=== PATIENT | female | born 1980 | race Caucasian/White ===

== ENCOUNTER 2023-08-01 09:31 | Emergency (ER) | payer OTHER, SELFPAY ==
[2023-08-01 09:32] VITALS: BP 150/81
[2023-08-01 10:10] LABS: COVID-19 Antigen Positive (Negative)
--- NOTE | 2023-08-01 10:24 | ED.GENMED ---
History of Present Illness
<Cheryl Clement PA-C - Last Filed: 08/01/23 13:48>
General
Chief Complaint: Cold/Flu/URI Symptoms
Source: patient
Exam Limitations: none
Time Seen by Provider: 08/01/23 10:22
Nursing documentation reviewed up to this point in time: agreed with
Travel History
Have you had any contact with someone who has COVID-19?: No
Do you have any symptoms of coronavirus? Fever > 100 degrees, chills, cough, shortness of breath, sore throat, loss of taste or smell, muscle aches, or headache?: No
History of Present Illness
History of Present Illness:
42-year-old female with a past medical history of coronary artery disease, hypertension, anemia, hyperlipidemia, type 1 diabetes status post pancreas and kidney transplant presenting to the emergency department today with cough, runny nose,
generalized weakness for the past 5 days. Patient denies any fevers or chills, abdominal pain, shortness of breath, chest pain. Patient does note that she had a few episodes of vomiting today. Patient denies any back pain. Patient also has
decreased appetite and feels that she is dehydrated and is not doing a good job of getting fluids in. Patient follows with [facility] where she had her transplant's done. Patient takes tacrolimus.
Past History
<Cheryl Clement PA-C - Last Filed: 08/01/23 13:48>
Past History
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 Renal and pancreatic
transplant November 2010.)
ED Past Surgical History: Other (renal and pancreatic transplant, right upper extremity fistula)
Social History
Tobacco: Former smoker
Alcohol: None
Drug: None
Personal: Single
Living: with family
Employment: Employed
Family History
Family History: Diabetes
Review of Systems
<Cheryl Clement PA-C - Last Filed: 08/01/23 13:48>
Review of Systems
All Other Systems: ROS reviewed and negative except as documented in HPI and ROS
Phy Exam
<Cheryl Clement PA-C - Last Filed: 08/01/23 13:48>
Physical Exam
Physical Exam:
General: Patient is well appearing and in no acute distress; non-toxic
Skin: Warm and dry, no rashes or lesions
Head: Normocephalic, atraumatic
Eyes: Sclera non-icteric. EOMs intact. No conjunctival injection or erythema.
Mouth: No pharyngeal erythema, uvula midline.
Cardiac: Regular rate, no murmurs heard.
Peripheral Vascular: No lower extremity edema
Pulm: Normal respiratory effort, no wheezes, rales, rhonchi heard on exam.
Abdomen: No abdominal tenderness to palpation. No palpable masses.
Neuro: CN II-XII intact, no focal neurologic deficits.
Psychiatric: Appropriate mood and affect.
Course
<Cheryl Clement PA-C - Last Filed: 08/01/23 13:48>
Orders/Labs/Results
Orders:
Orders
08/01/23 09:37
COVID-19 Antigen Urgent
Source: Nasal Swab
INF RAPID [Influenza A+B Rapid Molecular] Urgent
[facility] Source: Nasal Swab
Specimen Description:
08/01/23 10:37
0.9% Sodium Chloride 1000 ml [Nss] 1,000 ml IV BOLUS
08/01/23 10:40
CMP [Comprehensive Metabolic Panel] Urgent
Complete Blood Count/No Diff Urgent
Abnormal Lab Results
08/01/23 08/01/23
09:37 10:40
RBC 3.88 L 10^6/uL
(4.20-5.40)
Hgb 11.2 L g/dL
(12.0-16.0)
Hct 33.0 L %
(37.0-47.0)
Chloride 109 H mmol/L
(98-107)
Carbon Dioxide 18 L mmol/L
(22-30)
BUN 29 H mg/dl
(7-17)
Creatinine 1.4 H mg/dL
(0.6-1.0)
Glucose 116 H mg/dl
(70-99)
AST 42 H U/L
(14-36)
ALT 71 H U/L
(0-35)
SARS-CoV-2 Antigen Positive A
(Negative)
08/01/23 10:40
08/01/23 10:40
Vital Signs
Initial and Last Documented VS:
Initial Vital Signs
Temp Pulse Resp BP Pulse Ox
98.3 F 84 20 150/81 100
08/01/23 09:32 08/01/23 09:32 08/01/23 09:32 08/01/23 09:32 08/01/23 09:32
Last Documented Vital Signs
Temp Pulse Resp BP Pulse Ox
98.3 F 78 18 178/88 99
08/01/23 09:32 08/01/23 12:43 08/01/23 12:43 08/01/23 12:43 08/01/23 12:43
<Chino Peñaloza, DO - Last Filed: 08/01/23 13:12>
Orders/Labs/Results
Orders:
Orders
08/01/23 09:37
COVID-19 Antigen Urgent
Source: Nasal Swab
INF RAPID [Influenza A+B Rapid Molecular] Urgent
[facility] Source: Nasal Swab
Specimen Description:
04/30/24 10:37
0.9% Sodium Chloride 1000 ml [Nss] 1,000 ml IV BOLUS
08/01/23 10:40
CMP [Comprehensive Metabolic Panel] Urgent
Complete Blood Count/No Diff Urgent
Abnormal Lab Results
08/01/23 08/01/23
09:37 10:40
RBC 3.88 L 10^6/uL
(4.20-5.40)
Hgb 11.2 L g/dL
(12.0-16.0)
Hct 33.0 L %
(37.0-47.0)
Chloride 109 H mmol/L
(98-107)
Carbon Dioxide 18 L mmol/L
(22-30)
BUN 29 H mg/dl
(7-17)
Creatinine 1.4 H mg/dL
(0.6-1.0)
Glucose 116 H mg/dl
(70-99)
AST 42 H U/L
(14-36)
ALT 71 H U/L
(0-35)
SARS-CoV-2 Antigen Positive A
(Negative)
08/01/23 10:40
08/01/23 10:40
Vital Signs
Initial and Last Documented VS:
Initial Vital Signs
Temp Pulse Resp BP Pulse Ox
98.3 F 84 20 150/81 100
08/01/23 09:32 08/01/23 09:32 08/01/23 09:32 08/01/23 09:32 08/01/23 09:32
Last Documented Vital Signs
Temp Pulse Resp BP Pulse Ox
98.3 F 78 18 178/88 99
08/01/23 09:32 08/01/23 12:43 08/01/23 12:43 08/01/23 12:43 08/01/23 12:43
Octavialt;Cheryl Clement PA-C - Last Filed: 08/01/23 13:48>
MDM/Problems Addressed
Differential Diagnosis Includes:
Differentials include upper respiratory tract infection/COVID 19, influenza, acute bronchitis, pneumonia
MDM/Problems Addressed:
cough, cold like symptoms, weakness

Patient tested positive for COVID. Will obtain labs as patient is immunocompromised and has a hx of kidney transplantation. No indication for CXR at this time.
Chronic conditions affecting care:
Coronary artery disease, hypertension, hyperlipidemia, type 1 diabetes status post pancreas transplant, kidney transplant, anemia, depression
Acute Exacerbation and/or Progression of Chronic Illness:
Coronary artery disease, hypertension, hyperlipidemia, type 1 diabetes status post pancreas transplant, kidney transplant, anemia, depression
<Cheryl Clement PA-C - Last Filed: 08/01/23 13:48>
*Pulse Oximetry
Patient hypoxic: no
*Critical Care Note
Total Time (30-74mins, 75-104mins- exclusive of procedures): Not Applicable
Data Reviewed
Review of Other/Old Records Reveals: Records (Reviewed ER physician documentation from 02/04/2022 when patient was seen here for COVID, at which point she had a fever, patient was treated with monoclonal antibodies.) and Discharge Summary (Reviewed
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
Source: patient and records
<SUKH Vargas Last Filed: 08/01/23 13:48>
Patient Management
Escalation/DeEscalation of care consider admission/obs:
42-year-old female with a past medical history of coronary artery disease, hypertension, anemia, hyperlipidemia, type 1 diabetes status post pancreas and kidney transplant presenting to the emergency department today with cough, runny nose,
generalized weakness for the past 5 days. On exam, she has no signs of respiratory distress, her lungs are clear. She is afebrile. She tested positive today for COVID-19. Patient was placed on IV fluids, on reassessment, patient states that she
feels significantly better with IV fluids. Her labs demonstrate chronic anemia, as well as a chronic elevated creatinine. Also low bicarb which seems to be her baseline. At this time, patient is stable for discharge. Return precautions were
given.
ED Attending Note
<Cheryl Clement PA-C - Last Filed: 08/01/23 13:48>
-
Portions of this chart may have been created with voice recognition software.� Occasional wrong word or��sound alike� substitutions may have occurred due to the inherent limitations of voice recognition software.
<Chino Peñaloza DO - Last Filed: 08/01/23 13:12>
ED Attending Note
Patient seen and examined by attending physician: Yes
I performed the substantive portion of visit, reviewed & personally made and approve the management plan that is documented in note by myself or SANTOS.: Yes
I performed a history and physical exam of patient and discussed management with resident, I reviewed resident's note and agree with documented findings and plan of care.: Yes
ED Attending Note:
I evaluated the patient at bedside. She feels significant proved after fluids were given. Bicarb is slightly low and creatinine slightly high but similar numbers to prior. She is positive for COVID-19 today.
Discharge Plan
Departure
Patient Disposition: Home (Routine Discharge)
Date of Disposition: 08/01/23
Time of Disposition: 13:14
Patient with high blood pressure during this ER visit?: Yes
Condition: Good
Discharge Problem:
COVID-19
Instructions: COVID-19 (DC), BLOOD PRESSURE
Prescriptions:
No Action
mycophenolate mofetil 250 MG capsule
1,000 mg PO Q12
omeprazole [Prilosec] 40 MG capsule,delayed release(DR/EC)
40 mg PO BID
multivitamin with folic acid [Tab-A-Sarai] 1 TABLET tablet
1 tab PO DAILY
tacrolimus 1 MG capsule
1 mg PO DAILY
aspirin 81 MG tablet,delayed release (DR/EC)
81 mg PO DAILY
prednisone 5 MG tablet
5 mg PO DAILY
levothyroxine 100 MCG tablet
100 mcg PO DAILY
ezetimibe 10 MG tablet
10 mg PO DAILY Qty: 30 3RF
nitroglycerin 0.4 MG tablet, sublingual
0.4 mg sublingual [id number] PRN (Reason: chest pain) Qty: 25 3RF
Patient Comments:
patient states she has never taken
norethindrone-e.estradiol-iron [ ()] 1 EACH tablet
4 tab PO DAILY
lorazepam 1 MG tablet
1 mg PO HS
Patient Comments:
patient states she last took weeks ago
tacrolimus 0.5 MG capsule
0.5 mg PO HS
carvedilol 12.5 MG tablet
25 mg PO BID
cannabidiol [Epidiolex] 1 UNIT solution
1 unit PO PRN PRN (Reason: pain)
Patient Comments:
Pt has vape pen
acetaminophen 325 MG tablet
650 mg PO Q4HPRN PRN (Reason: mild pain or temp >/= 100.4 F) 0RF
ondansetron 4 mg Tablet,Disintegrating
4 mg PO BIDPRN PRN (Reason: nausea/vomiting) Qty: 10 0RF
Referrals:
Adela Vizcaino MD [Family Provider] -
Activity Restrictions/Additional Instructions:
Please follow-up with your primary care provider.
Please follow-up with your [facility].
Please return the emergency department should you experience chest pain, shortness of breath, fever, and acute worsening of your symptoms, confusion, difficulty speaking, facial droop, or any other concerning signs or symptoms.
Interventions
Interventions:
*Risk Screen - Suicide Last Done: 08/01/23 10:35
*General Assessment Last Done: 08/01/23 10:35
*Neglect/Abuse Screening Last Done: 08/01/23 10:35
ED- Fall Risk Assessment Last Done: 08/01/23 10:35
*ED COVID-19 Vaccine History Last Done: 08/01/23 10:35
ED- Pulmonary Assessment Last Done: 08/01/23 10:35
Discharge Date and Time
Print Language: SWAZI
[2023-08-01 10:35] VITALS: BMI 30.3
[2023-08-01] MEDS: NSS 1000 IV (10:38)
[2023-08-01 10:40] VITALS: BP 171/94
[2023-08-01 10:55] LABS: Hemoglobin 11.2 g/dL (12.0-16.0); Mean Corp Hgb Conc. 33.9 g/dL (33.0-37.0); Mean Corpuscular Hgb 28.9 pg (27.0-31.0); Mean Corpuscular Volume 85.1 fL (81.0-99.0); Mean Platelet Volume 10.3 fL (7.4-10.4); Platelet Count 238 10^3/uL (130-400); Red Blood Cell Count 3.88 10^6/uL (4.20-5.40); Red Cell Dist. Width 13.4 % (11.5-14.5); White Blood Cell Count 9.3 10^3/uL (4.8-10.8)
[2023-08-01 11:11] LABS: ALT (SGPT) 71 U/L (0-35); AST (SGOT) 42 U/L (14-36); Albumin 4.4 g/dl (3.5-5.0); Alkaline Phosphatase 77 U/L (38-126); Blood Urea Nitrogen 29 mg/dl (7-17); Calcium 9.7 mg/dl (8.4-10.2); Carbon Dioxide 18 mmol/L (22-30); Chloride 109 mmol/L (98-107); Estimated Creatinine Clearance 58 ml/min; Glucose 116 mg/dl (70-99); Potassium 4.6 mmol/L (3.5-5.1); Sodium 137 mmol/L (135-145); Total Bilirubin 0.4 mg/dl (0.2-1.3); Total Protein 7.3 g/dl (6.3-8.2); eGFR 48.17
[2023-08-01 12:43] VITALS: BP 178/88
== END 2023-08-01 13:58 | disposition home or self-care (01) ==
LOC: EMR 09:31
PROVIDERS: Physician Assistant; EMERGENCY PHYSICIAN Emergency Medicine; FAMILY PHYSICIAN Emergency Medicine
DX: U07.1 COVID-19 (principal); E10.43 Type 1 diabetes mellitus with diabetic autonomic (poly)neuropathy; I25.10 Atherosclerotic heart disease of native coronary artery without angina pectoris; I10 Essential (primary) hypertension; Z87.891 Personal history of nicotine dependence; Z94.0 Kidney transplant status
CPT/HCPCS: 99284; 96360; 80053; 85027; 87502; 87811

== ENCOUNTER → 2023-10-18 09:02 | Outpatient (REF) | payer OTHER, SELFPAY | LOC: RAD 09:02 | PROVIDERS: ATTENDING PHYSICIAN Surgery Vascular Surgery; FAMILY PHYSICIAN Emergency Medicine | DX: T82.898D Other specified complication of vascular prosthetic devices, implants and grafts, subsequent encounter (principal) | CPT/HCPCS: 93931 ==

== ENCOUNTER → 2024-02-20 13:48 | Outpatient (REF) | payer OTHER, SELFPAY | LOC: RCS 13:48 | PROVIDERS: ATTENDING PHYSICIAN Internal Medicine; FAMILY PHYSICIAN Emergency Medicine | DX: I25.10 Atherosclerotic heart disease of native coronary artery without angina pectoris (principal); I25.5 Ischemic cardiomyopathy; I21.09 ST elevation (STEMI) myocardial infarction involving other coronary artery of anterior wall | CPT/HCPCS: 93306 ==

== ENCOUNTER 2024-09-26 08:40 | Emergency (ER) | payer OTHER, SELFPAY ==
[2024-09-26 08:41] VITALS: BP 140/86
[2024-09-26 09:52] VITALS: BP 110/79; BMI 28.5
[2024-09-26 10:00] VITALS: BP 124/77
--- NOTE | 2024-09-26 10:10 | ED.GENMED ---
History of Present Illness
General
Chief Complaint: Abnormal Lab Value
Time Seen by Provider: 09/26/24 09:29
History of Present Illness
History of Present Illness:
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 Patient had outpatient laboratory analysis completed on Monday by her primary care doctor, was
called for a potassium of 6.5. She does note that she has been having ongoing diarrhea for the past 2 months, which is being followed by her plumbing service technician. She otherwise denies chest pain, difficulty breathing, abdominal pain. She has had
intermittent vomiting, again which is being followed by GI. Denies weakness or lightheadedness or additional acute medical complaints.
Past History
Past History
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 Renal and pancreatic
transplant November 2010.)
ED Past Surgical History: Other (renal and pancreatic transplant, right upper extremity fistula)
Social History
Tobacco: Former smoker
Alcohol: None
Drug: None
Personal: Single
Living: with family
Employment: Employed
Family History
Family History: Diabetes
Phy Exam
Physical Exam
Physical Exam:
General: Well-appearing, no clinical signs of dehydration, nontoxic and in no acute distress
HEENT: protecting airway
Neck: appears supple
CV: Normal heart rate, regular rhythm
Resp: No accessory muscle use, no increased work of breathing, lungs clear to auscultation bilaterally
Abd: No distention
Extremities: No deformities, no swelling, no erythema
Neuro: alert, no focal neurologic deficit
: deferred
Rectal: deferred
Psych: Normal affect
Skin: Intact
Course
Orders/Labs/Results
Orders:
Orders
09/26/24 08:44
EKG [Electrocardiogram (*1)] Urgent
Reason for Study: Other
Other Reason for Exam: hyperkalemia
09/26/24 08:45
EKG- Treatment ONCE
09/26/24 10:03
Complete Blood Count/With Diff Urgent
Comprehensive Metabolic Panel Urgent
09/26/24 11:02
0.9% Sodium Chloride 1000 ml [Nss] 1,000 ml IV BOLUS
Abnormal Lab Results
09/26/24
10:03
RBC 3.45 L 10^6/uL
(4.20-5.40)
Hgb 10.1 L g/dL
(12.0-16.0)
Hct 31.2 L %
(37.0-47.0)
MCHC 32.4 L g/dL
(33.0-37.0)
Absolute Monos (auto) 0.7 H 10^3/uL
(0.1-0.6)
Potassium 5.2 H mmol/L
(3.5-5.1)
Chloride 117 H mmol/L
(98-107)
Carbon Dioxide 13 L* mmol/L
(22-30)
BUN 49 H mg/dl
(7-17)
Creatinine 1.7 H mg/dL
(0.6-1.0)
09/26/24 10:03
09/26/24 10:03
Vital Signs
Initial and Last Documented VS:
Initial Vital Signs
Temp Pulse Resp BP Pulse Ox
98.4 F 99 18 140/86 100
09/26/24 08:41 09/26/24 08:41 09/26/24 08:41 09/26/24 08:41 09/26/24 08:41
Last Documented Vital Signs
Temp Pulse Resp BP Pulse Ox
97.9 F 74 14 139/80 99
09/26/24 12:56 09/26/24 12:56 09/26/24 12:56 09/26/24 12:56 09/26/24 12:56
MDM/Problems Addressed
MDM/Problems Addressed:
44-year-old female with prior history of kidney and pancreas transplant from juvenile diabetes presenting for concern of hyper kalemia from outpatient lab testing. Vital signs normal.
On exam patient resting comfortably, no acute distress or discomfort. Unremarkable cardiac and pulmonary exam. EKG without any peaked T waves. Possible lab error, hemolysis. Will repeat. Does note that she has been having ongoing diarrhea, so
dehydration is also consideration.
11:00 -potassium is minimally elevated at 5.2. Again no EKG changes. Mils increase in patient's creatinine. Clinically suspect mild dehydration. Will administer a liter of fluids with plan for patient to follow-up outpatient for repeat laboratory
analysis.
*Pulse Oximetry
SaO2: 98
Oxygen Mode of Delivery: Room air
Patient hypoxic: no
*EKG
Interpreted by ED Provider?: Yes
EKG Intrepretation Date: 09/26/24
EKG Intrepretation Time: 10:15
Interpretation: normal
Heart Rate: 85
Rate: normal
Rhythm: sinus
[place]: normal axis
Interval: normal interval
QRS Pattern: normal QRS
Ischemia: no ischemia
*Critical Care Note
Total Time (30-74mins, 75-104mins- exclusive of procedures): Not Applicable
ED Attending Note
-
Portions of this chart may have been created with voice recognition software.� Occasional wrong word or��sound alike� substitutions may have occurred due to the inherent limitations of voice recognition software.
Discharge Plan
Departure
Patient Disposition: Home (Routine Discharge)
Date of Disposition: 09/26/24
Time of Disposition: 12:37
Patient with high blood pressure during this ER visit?: No
Condition: Good
Discharge Problem:
Hyperkalemia
Instructions: Hyperkalemia (DC)
Prescriptions:
No Action
mycophenolate mofetil 250 MG capsule
1,000 mg PO BID
tacrolimus 1 MG capsule
2 mg PO BID
aspirin 81 MG tablet,delayed release (DR/EC)
81 mg PO DAILY
prednisone 5 MG tablet
5 mg PO DAILY
carvedilol 12.5 MG tablet
12.5 mg PO BID
enalapril maleate 20 mg Tablet
20 mg PO BID
norethindrone-e.estradiol-iron [Aurovela Fe 1-20 (28)] 1 mg-20 mcg (21)/75 mg (7) tablet
1 tab PO DAILY
spironolactone 25 mg Tablet
12.5 mg PO DAILY
levothyroxine [Synthroid] 88 mcg Tablet
88 mcg PO DAILY
famotidine [Pepcid] 20 mg Tablet
20 mg PO HS
sodium bicarbonate 650 mg Tablet
1,300 mg PO BID
esomeprazole magnesium [Nexium] 40 mg Capsule,Delayed Release(Dr/Ec)
40 mg PO DAILY
gabapentin 300 mg Capsule
900 mg PO BID
pravastatin 20 mg Tablet
20 mg PO DAILY
hydrochlorothiazide 25 mg Tablet
25 mg PO DAILY
diphenhydramine-acetaminophen [Acetaminophen PM] 25-500 mg Tablet
1 tab PO HS
vitamin E 268 mg (400 unit) Capsule
268 mg PO DAILY
duloxetine 30 mg Capsule,Delayed Release(Dr/Ec)
30 mg PO QPM
duloxetine 60 mg Capsule,Delayed Release(Dr/Ec)
60 mg PO DAILY
zolpidem [Ambien CR] 6.25 mg Tablet,Ext Release Multiphase
6.25 mg PO HSPRN PRN (Reason: SLEEP)
Repatha SureClick 140 mg/mL Pen Injector
140 mg SC Q2W
Medical Marijuana
1 dose PO DAILYPRN PRN (Reason: AXNIETY)
Referrals:
Adela Vizcaino MD [Family Provider, Internal Medicine]
Activity Restrictions/Additional Instructions:
You were seen in the emergency department for elevated potassium
You were found to have a potassium of 5.2 which is minimally elevated. We suspect component of dehydration. You were given IV fluids. We recommend that you have a repeat potassium check in 1 week with your primary care doctor.
Please follow-up closely with your primary care physician.
Return to the emergency department for any worsening of your symptoms, or any development of chest pain, difficulty breathing, abdominal pain with persistent vomiting and inability to tolerate food or liquid by mouth (concern for dehydration),
weakness, headache or confusion, fever greater than 100.4, or any additional symptoms that are concerning to you.
Thank you for choosing [facility].
Interventions
Interventions:
*Risk Screen - Suicide Last Done: 09/26/24 09:53
*General Assessment Last Done: 09/26/24 09:53
*Neglect/Abuse Screening Last Done: 09/26/24 09:53
*ED- Fall Risk Assessment Last Done: 09/26/24 09:53
*ED COVID-19 Vaccine History Last Done: 09/26/24 09:53
*Nursing Disposition Last Done: 09/26/24 12:56
Discharge Date and Time
Discharge Date/Time: 09/26/24 12:58
Print Language: BURUNDIAN
[2024-09-26 10:26] LABS: % Basophils 0.4 % (0-2); % Eosinophils 2.3 % (0-6); % Immature Granulocytes 0.4 % (0-0.5); % Lymphocytes 29.1 % (20.5-51.1); % Monocytes 8.7 % (1.7-9.3); % Neutrophils 59.1 % (42.2-75.2); Absolute Eosinophils 0.2 10^3/uL (0-0.7); Absolute Lymphocytes 2.3 10^3/uL (1.2-3.4); Absolute Monocytes 0.7 10^3/uL (0.1-0.6); Absolute Neutrophils 4.6 10^3/uL (1.4-6.5); Hematocrit 31.2 % (37.0-47.0); Hemoglobin 10.1 g/dL (12.0-16.0); Mean Corp Hgb Conc. 32.4 g/dL (33.0-37.0); Mean Corpuscular Hgb 29.3 pg (27.0-31.0); Mean Corpuscular Volume 90.4 fL (81.0-99.0); Mean Platelet Volume 9.8 fL (7.4-10.4); Nucleated Red Blood Cells % 0 %; Platelet Count 236 10^3/uL (130-400); Red Blood Cell Count 3.45 10^6/uL (4.20-5.40); Red Cell Dist. Width 13.6 % (11.5-14.5); White Blood Cell Count 7.8 10^3/uL (4.8-10.8)
[2024-09-26 10:42] LABS: ALT (SGPT) 34 U/L (0-35); AST (SGOT) 20 U/L (14-36); Alkaline Phosphatase 48 U/L (38-126); Blood Urea Nitrogen 49 mg/dl (7-17); Calcium 9.3 mg/dl (8.4-10.2); Carbon Dioxide 13 mmol/L (22-30); Chloride 117 mmol/L (98-107); Estimated Creatinine Clearance 47 ml/min; Glucose 99 mg/dl (70-99); Potassium 5.2 mmol/L (3.5-5.1); Sodium 140 mmol/L (135-145); Total Bilirubin 0.3 mg/dl (0.2-1.3); Total Protein 6.5 g/dl (6.3-8.2); eGFR 37.69
[2024-09-26] MEDS: NSS 1000 IV (11:18)
[2024-09-26 12:56] VITALS: BP 139/80
== END 2024-09-26 12:58 | disposition home or self-care (01) ==
LOC: EMR 08:40
PROVIDERS: EMERGENCY PHYSICIAN Student in an Organized Health Care Education/Training Program; FAMILY PHYSICIAN Emergency Medicine
DX: E87.5 Hyperkalemia (principal); E03.9 Hypothyroidism, unspecified; E10.9 Type 1 diabetes mellitus without complications; E78.00 Pure hypercholesterolemia, unspecified; I10 Essential (primary) hypertension; I25.10 Atherosclerotic heart disease of native coronary artery without angina pectoris; Z79.4 Long term (current) use of insulin; Z87.891 Personal history of nicotine dependence; Z94.83 Pancreas transplant status; Z94.0 Kidney transplant status
CPT/HCPCS: 96360; 99284; 80053; 85025; 93005

== ENCOUNTER → 2024-11-08 07:48 | Outpatient (REF) | payer OTHER, SELFPAY | LOC: RAD 07:48 | PROVIDERS: ATTENDING PHYSICIAN Surgery Vascular Surgery; FAMILY PHYSICIAN Emergency Medicine | DX: T82.898D Other specified complication of vascular prosthetic devices, implants and grafts, subsequent encounter (principal) | CPT/HCPCS: 93931 ==

== ENCOUNTER 2025-04-01 20:05 | Inpatient (IN) | payer OTHER, SELFPAY ==
[2025-04-01] VITALS (10 sets, daily range): BP systolic 138–169; BP diastolic 82–93; BMI 27.5; BMI 28.3
[2025-04-01 13:02] LABS: Hematocrit 31.4 % (37.0-47.0); Hemoglobin 10.2 g/dL (12.0-16.0); Mean Corp Hgb Conc. 32.5 g/dL (33.0-37.0); Mean Corpuscular Volume 90.0 fL (81.0-99.0); Nucleated Red Blood Cells % 0 %; Platelet Count 217 10^3/uL (130-400); Red Cell Dist. Width 14.1 % (11.5-14.5)
[2025-04-01 13:17] LABS: HCG, Serum Qualitative Screen Negative
[2025-04-01 13:35] LABS: ALT (SGPT) 1031 U/L (0-35); AST (SGOT) 324 U/L (14-36); Albumin 3.9 g/dl (3.5-5.0); Alkaline Phosphatase 68 U/L (38-126); Blood Urea Nitrogen 37 mg/dl (7-17); Calcium 9.2 mg/dl (8.4-10.2); Carbon Dioxide 22 mmol/L (22-30); Chloride 103 mmol/L (98-107); Glucose 111 mg/dl (70-99); Lipase 126 U/L (23-300); Potassium 5.2 mmol/L (3.5-5.1); Sodium 132 mmol/L (135-145); Total Protein 6.3 g/dl (6.3-8.2); eGFR 32.98
[2025-04-01] MEDS: NSS 1000 IV ×2 (16:25→22:31)
[2025-04-01 16:43] LABS: INR 0.98; PT 13.1 Sec (11.4-14.6)
[2025-04-01 16:44] LABS: APTT 24.5 Sec (23.4-35.0)
--- NOTE | 2025-04-01 16:55 | ED.GENMED ---
History of Present Illness
<Raj Butler PA-C - Last Filed: 04/01/25 22:19>
General
Chief Complaint: Abdominal Symptoms
Source: patient and physician
Time Seen by Provider: 04/01/25 16:08
History of Present Illness
History of Present Illness:
44-year-old female presenting to the ER at the request of her nephrology team for evaluation after she had outpatient labs done a few days ago which showed significantly abnormal renal function and LFTs, patient with history of renal and pancreatic
transplant 14 years ago done at [facility], chronic medical conditions including CAD, hypertension, hyperlipidemia status postcardiac stenting, currently not on dialysis. Patient states that since June she has been dealing with off-and-on
nausea and vomiting, has not vomited since Monday, no pain associated with this. She is not aware of any fevers, chills, rigors. She states currently she feels as if she is in her usual state of health. Social history was noted for cannabinoid
use which she states is for medical purposes. Denies any alcohol use. No recent antibiotics, no recent travel, no known sick contacts. Patient reports taking all of her medications as prescribed.
Past History
<Raj Butler PA-C - Last Filed: 04/01/25 22:19>
Past History
ED Past Medical History: CAD, GERD (Gastroparesis), HTN, Hypercholesterolemia, IDDM, RI, Renal failure, Hypothyroidism, Psychiatric and Other (Anemia, insulin-dependent diabetes at age 5 with renal failure, dialysis dependent 2009. Renal and
pancreatic transplant November 2010.)
ED Past Surgical History: Cardiac and Other (renal and pancreatic transplant, right upper extremity fistula)
Social History
Tobacco: Former smoker
Alcohol: None
Drug: Marijuana
Personal: Single
Living: with family
Employment: Employed
Family History
Family History: Diabetes
Review of Systems
<Raj Butler PA-C - Last Filed: 04/01/25 22:19>
Review of Systems
All Other Systems: ROS reviewed and negative except as documented in HPI and ROS
Phy Exam
<Raj Butler PA-C - Last Filed: 04/01/25 22:19>
Physical Exam
Physical Exam:
GENERAL: Alert , in no apparent distress
EYE: clear conjunctiva b/l, no scleral icterus
HEAD: NCAT
ENT: o/p clr, mmm.
CARDIAC: Regular rate and rhythm .
LUNGS: Clear breath sounds bilaterally, no acute respiratory distress, no wheezes/rales/rhonchi
ABDOMEN: Soft, without focal tenderness, no r/g, no cvat, negative Antoine sign, no tenderness at McBurney's point
NEUROLOGICAL: Alert and oriented
SKIN: Warm and dry, skin intact.
MUSCULOSKELETAL: No edema, well perfused.
PSYCH: Normal and appropriate interaction.
Scores
<Raj Butler PA-C - Last Filed: 04/01/25 22:19>
Heart Failure Risk
Heart Failure Risk Score: Not Applicable
Heart Score for Chest Pain Patients
STEMI patient?: Not applicable
Withdrawal Assessment of Alcohol
Withdrawal Assessment Completed?: Not applicable
Course
<Raj Butler PA-C - Last Filed: 04/01/25 22:19>
Orders/Labs/Results
Orders:
Orders
04/01/25 12:35
Test Result ONCE
04/01/25 12:37
CMP [Comprehensive Metabolic Panel] Urgent
Complete Blood Count/With Diff Urgent
HCG, Serum Qualitative Screen Urgent
Lipase Urgent
Tacrolimus (Prograft - FK506) [S] Urgent
04/01/25 Dinner
Regular
At Your Request: Limited Participation
04/01/25 16:19
Alcohol Urgent
Creatine Phosphokinase Urgent
Comment: ADDON
Hepatitis A IgM Antibody Urgent
Hepatitis B Core Ab, IgM Urgent
Hepatitis B Surface Antibody Urgent
Hepatitis B Surface Antigen Urgent
Hepatitis C Antibody Urgent
PTT Urgent
Prothrombin Time Urgent
Tylenol [Acetaminophen] Urgent
04/01/25 16:24
0.9% Sodium Chloride 1000 ml [Nss] 1,000 ml IV BOLUS
US Abdomen Complete/Upper Urgent
Comment:
Reason For Exam: abnormal LFT
04/01/25 19:54
Admit/Transfer Patient As Directed
Co-Sign Provider:
Level of Care: Inpatient admission
Assign to:: Telemetry
Physician / Group: cee
Diagnosis: RAISA, transaminitis
Reason for Telemetry: Arrhythmia
Date to Stop Telemetry: 04/04/25
Time to Stop Telemetry: 11:00
Reason for Hospitalization: RAISA, transaminitis
Expected length of stay greater than two midnights?: Yes
ELOS- Estimated Length of Stay in days: 2
I certify the patient meets the requirements for IP care: Yes
Code Status As Directed
Resuscitation Status: Full Code
PRN Pain Medication Management As Directed
May give lesser potent ordered pain med per pt: Yes
preference::
Protocol:: Medication orders for pain may be administered in a
manner that supports deferring to patient preference
when the pt is:
- Requesting an ordered lesser potent pain medication.
Least to most potent pain medications are defined
as: acetaminophen < NSAID < tramadol < opioids
(morphine, oxycodone, hydromorphone).
- Requesting a lesser dose of the same medication IF
ORDERED.
- Requesting a less intrusive route of administration
if both routes are prescribed by the provider (PO <
IV).
04/01/25 19:55
Add On- LAB Routine
Tests Added?: ck
04/01/25 21:45
0.9% Sodium Chloride 1000 ml [Nss] 1,000 ml IV 100 mls/hr
Heparin 5,000 units SC Q12
Lorazepam [Ativan] 1 mg PO DAILYPRN PRN anxiety
Ondansetron Injectable [Zofran] 4 mg IV Q6HPRN PRN
04/01/25 21:45
Activity As Directed
Activity Level: As Tolerated
Vital Signs As Directed
Frequency: Per unit guidelines
DX Deep Vein Thrombosis Video Routine
04/01/25 22:00
Famotidine [Pepcid] 20 mg PO HS
04/01/25 22:12
Zolpidem Tartrate [Ambien] 5 mg PO HSPRN PRN
04/02/25 06:00
Complete Blood Count/With Diff IN AM
Comprehensive Metabolic Panel IN AM
Levothyroxine [Synthroid] 88 mcg PO DAILY@0600
04/02/25 08:00
Aspirin Low Dose EC [Aspir Low (Enteric Coated)] 81 mg PO DAILY
Carvedilol [Coreg] 12.5 mg PO BID
Duloxetine Delayed Release [Cymbalta Delayed Release] 60 mg PO BID
Gabapentin [Neurontin] 900 mg PO BID
Multivitamin [Theragran] 1 tablet PO DAILY
Mycophenolate [Cellcept] 650 mg PO BID
Pantoprazole [Protonix] 40 mg PO DAILY
Prednisone [Deltasone] 5 mg PO DAILY
Sodium Bicarbonate 1,300 mg PO BID
Vitamin E 400 units PO DAILY
cranberry fruit concentrate [Azo Cranberry] 250 mg PO BID
04/04/25 11:00
DC Protocol for Telemetry ONCE
Abnormal Lab Results
04/01/25 04/01/25
12:37 16:19
RBC 3.49 L 10^6/uL
(4.20-5.40)
Hgb 10.2 L g/dL
(12.0-16.0)
Hct 31.4 L %
(37.0-47.0)
MCHC 32.5 L g/dL
(33.0-37.0)
Abs Immat Gran (auto) 0.1 H 10^3/uL
(0-0.05)
Absolute Neuts (auto) 7.5 H 10^3/uL
(1.4-6.5)
Neutrophils % 77.8 H %
(42.2-75.2)
Lymphocytes % 15.7 L %
(20.5-51.1)
Sodium 132 L mmol/L
(135-145)
Potassium 5.2 H mmol/L
(3.5-5.1)
BUN 37 H mg/dl
(7-17)
Creatinine 1.9 H mg/dL
(0.6-1.0)
Glucose 111 H mg/dl
(70-99)
AST 324 H U/L
(14-36)
ALT 1031 H* U/L
(0-35)
Creatine Kinase 27 L U/L
(30-135)
Acetaminophen < 10 L ug/ml
(10-30)
04/01/25 12:37
04/01/25 12:37
Vital Signs
Initial and Last Documented VS:
Initial Vital Signs
Temp Pulse Resp BP Pulse Ox
97.9 F 88 18 142/82 99
04/01/25 12:29 04/01/25 12:29 04/01/25 12:29 04/01/25 12:29 04/01/25 12:29
Last Documented Vital Signs
Temp Pulse Resp BP Pulse Ox
98.1 F 92 20 155/87 97
04/01/25 22:06 04/01/25 22:06 04/01/25 22:06 04/01/25 22:06 04/01/25 22:06
<Louis Islas MD - Last Filed: 04/01/25 19:10>
Orders/Labs/Results
Orders:
Orders
04/01/25 12:35
Test Result ONCE
04/01/25 12:37
CMP [Comprehensive Metabolic Panel] Urgent
Complete Blood Count/With Diff Urgent
HCG, Serum Qualitative Screen Urgent
Lipase Urgent
Tacrolimus (Prograft - FK506) [S] Urgent
04/01/25 Dinner
Regular
At Your Request: Limited Participation
04/01/25 16:19
Alcohol Urgent
Creatine Phosphokinase Urgent
Comment: ADDON
Hepatitis A IgM Antibody Urgent
Hepatitis B Core Ab, IgM Urgent
Hepatitis B Surface Antibody Urgent
Hepatitis B Surface Antigen Urgent
Hepatitis C Antibody Urgent
PTT Urgent
Prothrombin Time Urgent
Tylenol [Acetaminophen] Urgent
04/01/25 16:24
0.9% Sodium Chloride 1000 ml [Nss] 1,000 ml IV BOLUS
US Abdomen Complete/Upper Urgent
Comment:
Reason For Exam: abnormal LFT
04/01/25 19:54
Admit/Transfer Patient As Directed
Co-Sign Provider:
Level of Care: Inpatient admission
Assign to:: Telemetry
Physician / Group: cee
Diagnosis: RAISA, transaminitis
Reason for Telemetry: Arrhythmia
Date to Stop Telemetry: 04/04/25
Time to Stop Telemetry: 11:00
Reason for Hospitalization: RAISA, transaminitis
Expected length of stay greater than two midnights?: Yes
ELOS- Estimated Length of Stay in days: 2
I certify the patient meets the requirements for IP care: Yes
Code Status As Directed
Resuscitation Status: Full Code
PRN Pain Medication Management As Directed
May give lesser potent ordered pain med per pt: Yes
preference::
Protocol:: Medication orders for pain may be administered in a
manner that supports deferring to patient preference
when the pt is:
- Requesting an ordered lesser potent pain medication.
Least to most potent pain medications are defined
as: acetaminophen < NSAID < tramadol < opioids
(morphine, oxycodone, hydromorphone).
- Requesting a lesser dose of the same medication IF
ORDERED.
- Requesting a less intrusive route of administration
if both routes are prescribed by the provider (PO <
IV).
04/01/25 19:55
Add On- LAB Routine
Tests Added?: ck
04/01/25 21:45
0.9% Sodium Chloride 1000 ml [Nss] 1,000 ml IV 100 mls/hr
Heparin 5,000 units SC Q12
Lorazepam [Ativan] 1 mg PO DAILYPRN PRN anxiety
Ondansetron Injectable [Zofran] 4 mg IV Q6HPRN PRN
04/01/25 21:45
Activity As Directed
Activity Level: As Tolerated
Vital Signs As Directed
Frequency: Per unit guidelines
DX Deep Vein Thrombosis Video Routine
04/01/25 22:00
Famotidine [Pepcid] 20 mg PO HS
04/01/25 22:12
Zolpidem Tartrate [Ambien] 5 mg PO HSPRN PRN
04/02/25 06:00
Complete Blood Count/With Diff IN AM
Comprehensive Metabolic Panel IN AM
Levothyroxine [Synthroid] 88 mcg PO DAILY@0600
04/02/25 08:00
Aspirin Low Dose EC [Aspir Low (Enteric Coated)] 81 mg PO DAILY
Carvedilol [Coreg] 12.5 mg PO BID
Duloxetine Delayed Release [Cymbalta Delayed Release] 60 mg PO BID
Gabapentin [Neurontin] 900 mg PO BID
Multivitamin [Theragran] 1 tablet PO DAILY
Mycophenolate [Cellcept] 650 mg PO BID
Pantoprazole [Protonix] 40 mg PO DAILY
Prednisone [Deltasone] 5 mg PO DAILY
Sodium Bicarbonate 1,300 mg PO BID
Vitamin E 400 units PO DAILY
cranberry fruit concentrate [Azo Cranberry] 250 mg PO BID
04/04/25 11:00
DC Protocol for Telemetry ONCE
Abnormal Lab Results
04/01/25 04/01/25
12:37 16:19
RBC 3.49 L 10^6/uL
(4.20-5.40)
Hgb 10.2 L g/dL
(12.0-16.0)
Hct 31.4 L %
(37.0-47.0)
MCHC 32.5 L g/dL
(33.0-37.0)
Abs Immat Gran (auto) 0.1 H 10^3/uL
(0-0.05)
Absolute Neuts (auto) 7.5 H 10^3/uL
(1.4-6.5)
Neutrophils % 77.8 H %
(42.2-75.2)
Lymphocytes % 15.7 L %
(20.5-51.1)
Sodium 132 L mmol/L
(135-145)
Potassium 5.2 H mmol/L
(3.5-5.1)
BUN 37 H mg/dl
(7-17)
Creatinine 1.9 H mg/dL
(0.6-1.0)
Glucose 111 H mg/dl
(70-99)
AST 324 H U/L
(14-36)
ALT 1031 H* U/L
(0-35)
Creatine Kinase 27 L U/L
(30-135)
Acetaminophen < 10 L ug/ml
(10-30)
04/01/25 12:37
04/01/25 12:37
Vital Signs
Initial and Last Documented VS:
Initial Vital Signs
Temp Pulse Resp BP Pulse Ox
97.9 F 88 18 142/82 99
04/01/25 12:29 04/01/25 12:29 04/01/25 12:29 04/01/25 12:29 04/01/25 12:29
Last Documented Vital Signs
Temp Pulse Resp BP Pulse Ox
98.1 F 92 20 155/87 97
04/01/25 22:06 04/01/25 22:06 04/01/25 22:06 04/01/25 22:06 04/01/25 22:06
<Raj Butler PA-C - Last Filed: 04/01/25 22:19>
MDM/Problems Addressed
Differential Diagnosis Includes:
Hepatorenal syndrome
Hepatitis
Medication non-compliance
Cannabinoid hyperemesis
Dehydration
Gastroparesis
Biliary obstruction
Sepsis
MDM/Problems Addressed:
44-year-old female presenting to the ER for evaluation of abnormal renal and liver function tests, persistent nausea and vomiting since June, currently asymptomatic. Labs initiated on arrival show a creatinine of 1.9, this does appear increased
from patient's baseline of 1.4-1.6 and LFTs significantly abnormal with AST being 324 and ALT being 1031. I added on additional blood work including hepatitis panel, alcohol level, Tylenol level, coags as well as an ultrasound of the abdomen.
Patient will likely need admission.
Chronic conditions affecting care: Immunosuppressed
Acute Exacerbation and/or Progression of Chronic Illness: Immunosuppressed
<Raj Butler PA-C - Last Filed: 04/01/25 22:19>
*Radiology
Radiology exam reviewed: preliminary read by ED provider (Cholelithiasis without evidence for acute cholecystitis)
*Pulse Oximetry
SaO2: 100
Oxygen Mode of Delivery: Room air
Patient hypoxic: no
*Critical Care Note
Total Time (30-74mins, 75-104mins- exclusive of procedures): Not Applicable
Data Reviewed
Review of Other/Old Records Reveals: Labs and Records
<Raj Butler PA-C - Last Filed: 04/01/25 22:19>
Patient Management
Discussion with other providers: Hospitalist
Escalation/DeEscalation of care consider admission/obs:
Patient's ultrasound shows cholelithiasis but no evidence for obstructive process. Will admit to hospitalist service for continued evaluation and treatment. GI team will likely need to evaluate and consult.
ED Attending Note
<Raj Butler PA-C - Last Filed: 04/01/25 22:19>
-
Portions of this chart may have been created with voice recognition software.� Occasional wrong word or��sound alike� substitutions may have occurred due to the inherent limitations of voice recognition software.
<Louis Islas MD - Last Filed: 04/01/25 19:10>
ED Attending Note
Patient seen and examined by attending physician: Yes
I performed the substantive portion of visit, reviewed & personally made and approve the management plan that is documented in note by myself or SANTOS.: Yes
ED Attending Note:
Patient had routine labs. She feels fine. She has had intermittent vomiting for about 9 months. No abdominal pain no fever. No urinary symptoms.
On exam patient is nontoxic in no distress. Warm and dry. Perfusing well. No respiratory distress. Regular rate and rhythm. Abdomen is nontender. Grossly nonfocal.
Labs show a slight bump in her creatinine and a transaminitis. She has had this previously ultrasound shows cholelithiasis. No evidence of ductal dilatation. Atrophy of [place] kidneys. Given the slight bump in creatinine along with the
transaminitis patient warrants further inpatient management. Possibly medication related
Discharge Plan
Departure
Patient Disposition: Admit
Date of Disposition: 04/01/25
Time of Disposition: 19:11
Presentation/result/management discussed w/ accepting MD/DO: Hospitalist
Discharge Problem:
Transaminitis, RAISA (acute kidney injury)
Interventions
Interventions:
*General Assessment Last Done: 04/01/25 12:29
*Neglect/Abuse Screening Last Done: 04/01/25 16:24
*ED COVID-19 Vaccine History Last Done: 04/01/25 12:29
*ED Influenza Vaccine History Last Done: 04/01/25 12:29
[facility] Fall Risk Assessment Tool Last Done: 04/01/25 16:24
*Risk Screen - Suicide (C-SSRS) Last Done: 04/01/25 12:29
*Nursing Disposition Last Done: 04/01/25 21:41
GA-Gekuvd-Rcyyalpypg Assessment Last Done: 04/01/25 16:24
Discharge Date and Time
Discharge Date/Time: 04/01/25 21:41
[2025-04-01 16:56] LABS: Acetaminophen < 10 ug/ml (10-30)
[2025-04-01 17:21] LABS: Hepatitis B Surface Antigen Negative (Negative)
[2025-04-01 17:38] LABS: Hepatitis C Antibody Negative (Negative)
--- NOTE | 2025-04-01 19:58 | HPS.HSE ---
Family Physician
-
Family Physician: Rober Freeman, DO
Chief Complaint
-
abnormal kidney function
History of Present Illness
44-year-old female past medical history of type 1 diabetes status post kidney/pancreas transplant, anemia, CKD 3, CAD status post stents, hypertension, hypothyroidism, diabetes, hypercholesteremia, substance use disorder, peripheral neuropathy,
GERD, depression, hiatal hernia, right upper extremity thrombus, rheumatoid arthritis, presenting for abnormal renal function and LFTs. Her nephrology team performed outpatient labs a few days ago which showed significantly abnormal renal function
and LFTs. She had renal and pancreatic transplant 14 years ago at [facility].
She states that she had elevated liver enzymes 10 years ago and had liver biopsy at that time which was negative. This was attributed to statin which was stopped with improvement in liver function.
She has been having on and off nausea and vomiting since June. No fevers or chills or sweats. She started Wegovy for renal protection in December does have increased vomiting after receiving a dose of this.
She uses medical marijuana. Denies alcohol use. He is a former smoker. No recent antibiotics. No recent travel or sick contacts.
Medical History
Past Medical History
Past Medical History: Reports Other (type 1 diabetes status post kidney/pancreas transplant, anemia, CKD 3, CAD status post stents, hypertension, hypothyroidism, diabetes, hypercholesteremia, substance use disorder, peripheral neuropathy, GERD,
depression, hiatal hernia, right upper extremity thrombus, rheumatoid arthritis,)
Past Surgical History: Reports Other (kidney/pancreas transplant )
Social History
Tobacco: Former Smoker
Alcohol: None
Drug: Marijuana
Family History
Family History: Not pertinent
Allergies / Home Medications
Allergies reflects when Allergies were last updated in [employer].
Home Medications with original date entered in [employer]
Allergy/Medication List:
Allergies
Allergy/AdvReac Type Severity Reaction Status Date / Time
bupropion (From Wellbutrin) Allergy Unknown Verified 04/01/25 12:34
rosuvastatin Allergy Unknown Verified 04/01/25 12:34
Home Medications
mycophenolate mofetil 250 mg capsule 650 mg PO BID Transplant 11/21/10
tacrolimus 1 mg capsule, immediate-release 2 mg PO BID kidney transplant 05/09/14
aspirin 81 mg tablet,delayed release 81 mg PO DAILY Heart Disease/Condition 11/24/14
prednisone 5 mg tablet 5 mg PO DAILY kidney transplant 10/05/17
carvedilol 12.5 mg tablet 12.5 mg PO BID Blood Pressure 01/30/19
Medical Marijuana 1 dose PO DAILYPRN PRN AXNIETY 09/26/24
duloxetine 60 mg capsule,delayed release 60 mg PO BID Mental Health/Anxiety 09/26/24
evolocumab 140 mg/mL subcutaneous pen injector (Repatha SureClick) 140 mg SC Q2W High Cholesterol 09/26/24
famotidine 20 mg tablet (Pepcid) 20 mg PO HS Gastrointestinal Issue 09/26/24
gabapentin 300 mg capsule 900 mg PO BID Pain 09/26/24
hydrochlorothiazide 25 mg tablet 25 mg PO DAILY Blood Pressure 09/26/24
levothyroxine 88 mcg tablet (Synthroid) 88 mcg PO DAILY Thyroid 09/26/24
norethindrone 1 mg-ethinyl estradiol 20 mcg (21)-iron 75 mg (7) tablet (Aurovela Fe 1-20 (28)) 1 tab PO DAILY contraceptive 09/26/24
pravastatin 20 mg tablet 20 mg PO DAILY High Cholesterol 09/26/24
sodium bicarbonate 650 mg tablet 1,300 mg PO BID CKD 09/26/24
spironolactone 25 mg tablet 12.5 mg PO DAILY Blood Pressure 09/26/24
vitamin E 268 mg (400 unit) capsule 268 mg PO DAILY Supplement 09/26/24
zolpidem 6.25 mg tablet,extended release,multiphase (Ambien CR) 5 mg PO HSPRN PRN SLEEP 09/26/24
cranberry fruit concentrate 250 mg chewable tablet (Azo Cranberry) 250 mg PO BID 04/01/25
enalapril maleate 20 mg tablet 20 mg PO BID 04/01/25
esomeprazole magnesium 40 mg capsule,delayed release (Nexium) 40 mg PO DAILY 04/01/25
lorazepam 1 mg tablet (Ativan) 1 mg PO DAILY PRN anxiety 04/01/25
multivitamin,tx-minerals 1 tab PO DAILY 04/01/25
semaglutide (weight loss) 1.7 mg/0.75 mL subcutaneous pen injector (Wegovy) 1.7 mg SC QWEEK 04/01/25
Review of Systems
-
History Source: Patient
A 12 point ROS was completed and negative except as noted: Yes
Constitutional: Reports No Symptoms
EENT: Reports No Symptoms
Respiratory: Reports No Symptoms
Cardiac: Reports No Symptoms
Abdomen/GI: Reports See HPI
: Reports No Symptoms
Musculoskeletal: Reports No Symptoms
Skin: Reports No Symptoms
Neurological: Reports No Symptoms
Endocrine: Reports No Symptoms
Hematologic/Lymphatic: Reports No Symptoms
Psych: Reports No Symptoms
Physical Exam
Vital Signs
Vital Signs
Temp Pulse Resp BP Pulse Ox
98.5 F 85 15 163/91 97
04/01/25 16:24 04/01/25 19:15 04/01/25 19:15 04/01/25 18:46 04/01/25 19:15
Physical Exam
General: Well Developed, Well Nourished and No Apparent Distress
HEENT: NormoCephalic, Moist mucous membranes and Atraumatic
Respiratory: Clear
Cardiac: S1/S2 and Regular Rhythm; No Murmur or Rub
GI: Soft, Non Tender, Non Distended and Normal Bowel Sounds; No Organomegaly
Rectal: Deferred by Provider
Musculoskeletal: No Clubbing, No Cyanosis and No Edema
Skin: No Rash
Neuro: Nonfocal/grossly intact
Laboratory Results
-
04/01/25 12:37
04/01/25 12:37
Laboratory Results
PT 13.1 Sec (11.4-14.6) 04/01/25 16:19
INR 0.98 04/01/25 16:19
APTT 24.5 Sec (23.4-35.0) 04/01/25 16:19
Total Bilirubin 0.3 mg/dl (0.2-1.3) 04/01/25 12:37
AST 324 U/L (14-36) H 04/01/25 12:37
ALT 1031 U/L (0-35) H* 04/01/25 12:37
Alkaline Phosphatase 68 U/L (38-126) 04/01/25 12:37
Lipase 126 U/L (23-300) 04/01/25 12:37
Data Reviewed
-
Lab Data: Labs Reviewed by me
Old Records: Reviewed
Impression/Plan
-
IMPRESSION:
PLAN:
# RAISA on CKD 3 possibly secondary to hypovolemia/nephrotoxic medications
# Hyperkalemia
# History of diabetic nephropathy status post kidney transplant
-Creatinine of 1.9 from 1.7 in September and 1.4 in 2023
-Check CK
- IV fluids
-Hold enalapril, hydrochlorothiazide, spironolactone
-Continue mycophenolate, tacrolimus prednisone
-Her scientific associate recommended decreasing tacrolimus level to 1 tablet at night yesterday
-Check tacrolimus level
-Continue sodium bicarbonate
- Nephrology consulted
# Transaminitis unclear etiology
- Abdominal ultrasound shows cholelithiasis without evidence of acute cholecystitis or biliary duct dilatation, suggestion of hepatic steatosis, severely atrophic [place] kidneys with left lower quadrant transplanted kidney
- Hold statin
# Chronic nausea/vomiting likely from marijuana use/Wegovy
History of type 1 diabetes status post pancreas transplant
Chronic anemia
- Hemoglobin stable
CAD status post stents
- Continue aspirin, Coreg
Essential hypertension
Hypothyroidism
- Continue levothyroxine
History of type 1 diabetes treated with pancreas transplant
Hypercholesteremia
- Hold statin
-On Repatha
Peripheral neuropathy
- Continue gabapentin
GERD
- Continue esomeprazole, Pepcid
Depression
- Continue duloxetine
Hiatal hernia
History of right upper extremity thrombus
Rheumatoid arthritis
Marijuana use
Former smoker
Full code
DVT prophylaxis�heparin
Regular diet
--- NOTE | 2025-04-01 22:00 | PTCARENOTE ---
Pt arrived to [address] from ED, ambulates independently. AAOx3, VSS. Plan of care reviewed with pt. Pt oriented to room, call winkler in reach.
[2025-04-01] MEDS: AMBIEN 5 MG PO (22:30)
[2025-04-01] MEDS: HEPARIN 5000 UNITS SC (22:32)
[2025-04-02 03:16] VITALS: BP 134/81
[2025-04-02] MEDS: SYNTHROID 88 MCG PO (05:40)
[2025-04-02] MEDS: NSS 1000 IV (08:13)
[2025-04-02 08:21] VITALS: BP 154/89
[2025-04-02 08:54] LABS: Hematocrit 30.5 % (37.0-47.0); Hemoglobin 10.1 g/dL (12.0-16.0); Mean Corp Hgb Conc. 33.1 g/dL (33.0-37.0); Mean Corpuscular Volume 87.6 fL (81.0-99.0); Nucleated Red Blood Cells % 0 %; Platelet Count 228 10^3/uL (130-400); Red Cell Dist. Width 14.0 % (11.5-14.5)
[2025-04-02] MEDS: CYMBALTA DELAYED RELEASE 60 MG PO (08:59)
[2025-04-02] MEDS: NEURONTIN 900 MG PO (08:59)
[2025-04-02] MEDS: ASPIR LOW (ENTERIC COATED) 81 MG PO (08:59)
[2025-04-02] MEDS: VITAMIN E 400 UNITS PO (08:59)
[2025-04-02] MEDS: PROGRAF 2 MG PO (08:59)
[2025-04-02] MEDS: PROTONIX 40 MG PO (08:59)
[2025-04-02] MEDS: SODIUM BICARBONATE 1300 MG PO (08:59)
[2025-04-02] MEDS: THERAGRAN 1 TABLET PO (08:59)
[2025-04-02] MEDS: CELLCEPT 750 MG PO (09:00)
[2025-04-02] MEDS: COREG 12.5 MG PO (09:00)
[2025-04-02] MEDS: HEPARIN 5000 UNITS SC (09:00)
[2025-04-02] MEDS: DELTASONE 5 MG PO (09:04)
[2025-04-02 10:04] LABS: AST (SGOT) 281 U/L (14-36); Albumin 3.5 g/dl (3.5-5.0); Alkaline Phosphatase 57 U/L (38-126); Blood Urea Nitrogen 28 mg/dl (7-17); Calcium 9.1 mg/dl (8.4-10.2); Carbon Dioxide 19 mmol/L (22-30); Chloride 109 mmol/L (98-107); Estimated Creatinine Clearance 59 ml/min; Glucose 91 mg/dl (70-99); Potassium 4.8 mmol/L (3.5-5.1); Sodium 135 mmol/L (135-145); Total Protein 5.8 g/dl (6.3-8.2); eGFR 52.00
[2025-04-02 10:30] LABS: ALT (SGPT) 876 U/L (0-35)
[2025-04-02 11:38] VITALS: BP 136/83
--- NOTE | 2025-04-02 12:05 | W.CON.NEPH ---
Consultation
-
Date/Time Consultation Requested: April 01, 2025 1900
Date/Time Consultation Performed: April 02, 2020 5:11 AM
Requesting Provider: Italo Platt MD
Performing Provider: Dr. Jeffrey
Reason for Consultation: Acute kidney injury
Medical History
-
Chief Complaint: Acute kidney injury
History of Present Illness:
44-year-old female past medical history of type 1 diabetes status post kidney/pancreas transplant, anemia, CKD 3, CAD status post stents, hypertension, hypothyroidism, diabetes, hypercholesteremia, substance use disorder, peripheral neuropathy,
GERD, depression, hiatal hernia, right upper extremity thrombus, rheumatoid arthritis, presenting for abnormal renal function and LFTs. Her nephrology team performed outpatient labs a few days ago which showed significantly abnormal renal function
and LFTs. She had renal and pancreatic transplant 14 years ago at [facility].
She has been having on and off nausea and vomiting since June with the start of Wegovy for renal protection
Also had norovirus in the last 2 weeks
She follows with Dr. Lovelace who asked her to come to the hospital for creatinine of 1.9
Renal consultation for acute kidney
ALT 1031 down to 870s
Past Medical History
Past medical history of type 1 diabetes status post kidney/pancreas transplant, anemia, CKD 3, CAD status post stents, hypertension, hypothyroidism, diabetes, hypercholesteremia, substance use disorder, peripheral neuropathy, GERD, depression,
hiatal hernia, right upper extremity thrombus, rheumatoid arthritis, presenting for abnormal renal function and LFTs.
Social History
Tobacco: Non-Smoker
Drug: Marijuana
Family History
Family History: Not Pertinent
Allergies / Home Medications
Allergy/AdvReac Type Severity Reaction Status Date / Time
bupropion (From Wellbutrin) Allergy Unknown Verified 04/01/25 12:34
rosuvastatin Allergy Unknown Verified 04/01/25 22:42
�Medication �Instructions �Recorded �Confirmed �Type
mycophenolate mofetil 250 mg 650 mg PO BID Transplant 11/21/10 04/01/25 History
capsule
tacrolimus 1 mg capsule, 2 mg PO BID kidney transplant 05/09/14 04/01/25 History
immediate-release
aspirin 81 mg tablet,delayed 81 mg PO DAILY Heart 11/24/14 04/01/25 History
release Disease/Condition
prednisone 5 mg tablet 5 mg PO DAILY kidney transplant 10/05/17 04/01/25 History
carvedilol 12.5 mg tablet 12.5 mg PO BID Blood Pressure 01/30/19 04/01/25 History
Medical Marijuana 1 dose PO DAILYPRN PRN AXNIETY 09/26/24 04/01/25 History
duloxetine 60 mg capsule,delayed 60 mg PO BID Mental Health/Anxiety 09/26/24 04/01/25 History
release
evolocumab 140 mg/mL subcutaneous 140 mg SC Q2W High Cholesterol 09/26/24 04/01/25 History
pen injector (Repatha SureClick)
famotidine 20 mg tablet (Pepcid) 20 mg PO HS Gastrointestinal Issue 09/26/24 04/01/25 History
gabapentin 300 mg capsule 900 mg PO BID Pain 09/26/24 04/01/25 History
hydrochlorothiazide 25 mg tablet 25 mg PO DAILY Blood Pressure 09/26/24 04/01/25 History
levothyroxine 88 mcg tablet 88 mcg PO DAILY Thyroid 09/26/24 04/01/25 History
(Synthroid)
norethindrone 1 mg-ethinyl 1 tab PO DAILY contraceptive 09/26/24 04/01/25 History
estradiol 20 mcg (21)-iron 75 mg
(7) tablet (Aurovela Fe 1-20 (28))
pravastatin 20 mg tablet 20 mg PO DAILY High Cholesterol 09/26/24 04/01/25 History
sodium bicarbonate 650 mg tablet 1,300 mg PO BID CKD 09/26/24 04/01/25 History
spironolactone 25 mg tablet 12.5 mg PO DAILY Blood Pressure 09/26/24 04/01/25 History
vitamin E 268 mg (400 unit) capsule 268 mg PO DAILY Supplement 09/26/24 04/01/25 History
zolpidem 6.25 mg tablet,extended 5 mg PO HSPRN PRN SLEEP 09/26/24 04/01/25 History
release,multiphase (Ambien CR)
cranberry fruit concentrate 250 mg 250 mg PO BID 04/01/25 04/01/25 History
chewable tablet (Azo Cranberry)
enalapril maleate 20 mg tablet 20 mg PO BID 04/01/25 04/01/25 History
esomeprazole magnesium 40 mg 40 mg PO DAILY 04/01/25 04/01/25 History
capsule,delayed release (Nexium)
lorazepam 1 mg tablet (Ativan) 1 mg PO DAILY PRN anxiety 04/01/25 04/01/25 History
multivitamin,tx-minerals 1 tab PO DAILY 04/01/25 04/01/25 History
semaglutide (weight loss) 1.7 1.7 mg SC QWEEK 04/01/25 04/01/25 History
mg/0.75 mL subcutaneous pen
injector (Wegovy)
Review of Systems
-
All other systems: Negative unless noted
Physical Exam
Vital Signs
Vital Signs
Temp Pulse Resp BP Pulse Ox
98.2 F 83 18 136/83 97
04/02/25 11:38 04/02/25 11:38 04/02/25 11:38 04/02/25 11:38 04/02/25 11:38
Lab Results
WBC 9.9 10^3/uL (4.8-10.8) 04/02/25 08:24
RBC 3.48 10^6/uL (4.20-5.40) L 04/02/25 08:24
Hgb 10.1 g/dL (12.0-16.0) L 04/02/25 08:24
Hct 30.5 % (37.0-47.0) L 04/02/25 08:24
Plt Count 228 10^3/uL (130-400) 04/02/25 08:24
Sodium 135 mmol/L (135-145) 04/02/25 08:24
Potassium 4.8 mmol/L (3.5-5.1) 04/02/25 08:24
Chloride 109 mmol/L (98-107) H 04/02/25 08:24
Carbon Dioxide 19 mmol/L (22-30) L 04/02/25 08:24
BUN 28 mg/dl (7-17) H 04/02/25 08:24
Creatinine 1.3 mg/dL (0.6-1.0) H 04/02/25 08:24
eGFR 52.00 04/02/25 08:24
Glucose 91 mg/dl (70-99) 04/02/25 08:24
Calcium 9.1 mg/dl (8.4-10.2) 04/02/25 08:24
Albumin 3.5 g/dl (3.5-5.0) 04/02/25 08:24
Physical Exam
General no acute distress
HEENT no cephalic atraumatic extraocular muscle intact no scleral icterus no JVD neck supple
lungs clear to auscultation bilateral
heart regular S1-S2 positive
abdomen soft nontender positive bowel sounds
extremities no edema pulses present bilateral
Neurologically nonfocal alert and oriented x 3
Skin no lesions no abrasions no petechiae
Psych normal affect no bizarre behavior
Data Reviewed
-
Ultrasound: Image Personally Visualized and interpreted
Assessment/Plan
-
44-year-old female past medical history of type 1 diabetes status post kidney/pancreas transplant, anemia, CKD 3, CAD status post stents, hypertension, hypothyroidism, diabetes, hypercholesteremia, substance use disorder, peripheral neuropathy,
GERD, depression, hiatal hernia, right upper extremity thrombus, rheumatoid arthritis, presenting for abnormal renal function and LFTs. Her nephrology team performed outpatient labs a few days ago which showed significantly abnormal renal function
and LFTs. She had renal and pancreatic transplant 14 years ago at [facility].
Impression
Acute on chronic kidney disease status post liver pancreas transplant 2013 for type I diabetic with baseline creatinine 1.3�1.4
Type 1 diabetes
Transaminitis on statin therapy for 2+ years
Hypertension stable
Plan.
Creatinine improved with IV fluids 1.9-1.3.
Tacrolimus elevated outpatient per patient and that dose was decreased to 2 mg and 1 mg on Monday.
From renal standpoint would be okay for discharge as discussed with the patient and hospital medicine
Continue immunosuppressive therapy
Okay to restart enalapril on discharge and spironolactone
--- NOTE | 2025-04-02 12:25 | W.PN.HOSP.TC ---
Today's Communication/Plan
-
Monitor vital signs see plan
LFTs are improving, denies any abdominal pain. Feeling better
Okay to discharge with outpatient CMP follow-up with PCP
Discussed with nephrology
Monitor renal function
Assessment / Plan
Assessment / Plan
General: Well Developed, Well Nourished and No Apparent Distress
HEENT: NormoCephalic, Moist mucous membranes and Atraumatic
Respiratory: Clear
Cardiac: S1/S2 and Regular Rhythm; No Murmur or Rub
GI: Soft, Non Tender, Non Distended and Normal Bowel Sounds
Musculoskeletal: No Edema
Neuro: Nonfocal/grossly intact
RAISA on CKD 3 possibly secondary to hypovolemia/nephrotoxic medications
# Hyperkalemia
# History of diabetic nephropathy status post kidney transplant
-Creatinine of 1.9 from 1.7 in September and 1.4 in 2023. cr now 1.3. Appears improved after fluid resuscitation
CK not much elevated
-restartenalapril, spironolactone. hold HCTZ for now
-Continue mycophenolate, tacrolimus prednisone
-Her manager community relations recommended decreasing tacrolimus level to 1 tablet at night which she has done
-Check tacrolimus level
-Continue sodium bicarbonate
- Nephrology following; discussed with nephrology. Okay to discharge from their standpoint with outpatient follow-up
# Transaminitis unclear etiology
- Abdominal ultrasound shows cholelithiasis without evidence of acute cholecystitis or biliary duct dilatation, suggestion of hepatic steatosis, severely atrophic nikolski kidneys with left lower quadrant transplanted kidney
- Hold statin
Looking at her records, in October she also had elevated LFTs which self resolved. Patient does endorse having gastroenteritis a week ago. Acute hepatitis panel negative. 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
instructed her to follow-up upon discharge. She denies any abdominal pain at this time. Nontender on exam. Tylenol level less than 10. Her LFTs are improving and she is feeling better and wants to go home. CMP outpatient with PCP
# Chronic nausea/vomiting likely from marijuana use/Wegovy
History of type 1 diabetes status post pancreas transplant
Chronic anemia
- Hemoglobin stable
CAD status post stents
- Continue aspirin, Coreg
Essential hypertension
Hypothyroidism
- Continue levothyroxine
History of type 1 diabetes treated with pancreas transplant
Hypercholesteremia
- Hold statin
-On Repatha
Peripheral neuropathy
- Continue gabapentin
GERD
- Continue esomeprazole, Pepcid
Depression
- Continue duloxetine
Hiatal hernia
History of right upper extremity thrombus
Rheumatoid arthritis
Marijuana use
Former smoker
Full code
DVT prophylaxis�heparin
Anticipated Discharge: Today
Subjective/Interval History
-
Date of Service: April 02, 2025
Denies pain
Objective Data
-
Labs:
Laboratory Results
04/02/25
08:24
WBC 9.9
Hgb 10.1 L
Hct 30.5 L
Plt Count 228
Sodium 135
Potassium 4.8
Chloride 109 H
Carbon Dioxide 19 L
BUN 28 H
Creatinine 1.3 H
Glucose 91
Calcium 9.1
Total Bilirubin 0.4
AST 281 H
ALT 876 H*
Alkaline Phosphatase 57
Vital Signs:
Vital Signs
Temp Pulse Resp BP Pulse Ox
98.2 F 83 18 136/83 97
04/02/25 11:38 04/02/25 11:38 04/02/25 11:38 04/02/25 11:38 04/02/25 11:38
--- NOTE | 2025-04-02 12:47 | W.DCSUMMARY ---
Discharge Summary
Discharge Data
Date of Admission: 04/01/25
Date of Discharge: 04/02/25
-
Pending Results: No
Hospital Course
44-year-old female with past medical history of type 1 diabetes status post pancreas transplant, kidney transplant, CAD status post stent, essential hypertension, hypothyroidism, hyperlipidemia, peripheral neuropathy, GERD, depression, hiatal
hernia, right upper extremity thrombus, rheumatoid arthritis, CKD came to the hospital with abnormal blood work showing acute kidney injury on CKD and transaminitis. Renal function continue to improve over time with fluid. Patient was seen by
nephrology throughout hospitalization. For her transaminitis acute hepatitis panel was negative. Ultrasound of the abdomen showed Cholelithiasis without evidence of acute cholecystitis or biliary ductal dilation. Patient LFTs continue to improve
while she was in the hospital so she was instructed to follow-up with her restaurant service manager outpatient. Since her symptoms were improving, she was then discharged home with instructions to follow-up with all her physicians outpatient.
Discharge Plan
-
Patient Disposition: Home (Routine Discharge)
Discharge Diagnosis/Procedures: RAISA on CKD 3 possibly secondary to hypovolemia
Elevated LFTs
Condition: Fair
Diet: As tolerated
Activity: As tolerated
Driving Restrictions: As prior to admission
Bathing Restrictions: None
Blood Work: CMP on Monday with primary care provider or hepatology
Activity Restrictions/Additional Instructions:
Please follow-up with your restaurant service manager soon outpatient
Referrals:
Rober Freeman DO [Family Provider, Family Practice] - in less than 1 week
Prescriptions:
New
tacrolimus 1 mg Capsule
2 mg PO DAILY Qty: 0 0RF
tacrolimus 1 mg Capsule
1 mg PO QPM Qty: 0 0RF
Continued
mycophenolate mofetil 250 MG capsule
650 mg PO BID
aspirin 81 MG tablet,delayed release (DR/EC)
81 mg PO DAILY
prednisone 5 MG tablet
5 mg PO DAILY
carvedilol 12.5 MG tablet
12.5 mg PO BID
norethindrone-e.estradiol-iron [Aurovela Fe 1-20 (28)] 1 mg-20 mcg (21)/75 mg (7) tablet
1 tab PO DAILY
spironolactone 25 mg Tablet
12.5 mg PO DAILY
levothyroxine [Synthroid] 88 mcg Tablet
88 mcg PO DAILY
famotidine [Pepcid] 20 mg Tablet
20 mg PO HS
sodium bicarbonate 650 mg Tablet
1,300 mg PO BID
gabapentin 300 mg Capsule
900 mg PO BID
vitamin E 268 mg (400 unit) Capsule
268 mg PO DAILY
duloxetine 60 mg Capsule,Delayed Release(Dr/Ec)
60 mg PO BID
zolpidem [Ambien CR] 6.25 mg Tablet,Ext Release Multiphase
5 mg PO HSPRN PRN (Reason: SLEEP)
Repatha SureClick 140 mg/mL Pen Injector
140 mg SC Q2W
Medical Marijuana
1 dose PO DAILYPRN PRN (Reason: AXNIETY)
enalapril maleate 20 mg Tablet
20 mg PO BID
esomeprazole magnesium [Nexium] 40 mg Capsule,Delayed Release(Dr/Ec)
40 mg PO DAILY
lorazepam [Ativan] 1 mg Tablet
1 mg PO DAILY PRN (Reason: anxiety)
multivitamin,tx-minerals Tablet
1 tab PO DAILY
Azo Cranberry 250 mg Tablet,Chewable
250 mg PO BID
Wegovy 1.7 mg/0.75 mL Pen Injector
1.7 mg SC QWEEK
Held
pravastatin 20 mg Tablet
20 mg PO DAILY
Hold Instructions: When okay with the outpatient physician
hydrochlorothiazide 25 mg Tablet
25 mg PO DAILY
Hold Instructions: Restart when okay with your primary care provider or nephrology
Discontinued
tacrolimus 1 MG capsule
2 mg PO BID
Discharge Orders:
Discharge Patient (As Directed); Ordered 04/02/25
Ordered By: Armin Maravilla
Discharge Date and Time
Discharge Date/Time: 04/02/25 15:39
Print Language: LUXEMBOURG[place]
--- NOTE | 2025-04-02 15:22 | CM ---
CM met with patient at bedside. IA completed. Patient lives with her mother in a 2 story house. She is independent with ambulation and ADLs. She denies any concerns returning home. Her mother will provide transport.
PCP: Rober Marie
Pharmacy: [facility]
Plan: home no needs
[2025-04-04 08:46] LABS: Tacrolimus (Prograft - FK506) 8.5 ng/mL
== END 2025-04-02 15:39 | disposition home or self-care (01) | DRG 683 ==
LOC: 4 WEST ACU 20:05
PROVIDERS: Emergency Medicine; Physician Assistant Medical; ADMITTING PHYSICIAN Hospitalist; ATTENDING PHYSICIAN Internal Medicine; CONSULT PHYSICIAN Specialist; EMERGENCY PHYSICIAN Emergency Medicine; FAMILY PHYSICIAN Family Medicine
DX: N17.9 Acute kidney failure, unspecified (principal); D84.821 Immunodeficiency due to drugs; Z94.83 Pancreas transplant status; Z94.0 Kidney transplant status; E10.22 Type 1 diabetes mellitus with diabetic chronic kidney disease; N18.30 Chronic kidney disease, stage 3 unspecified; E10.42 Type 1 diabetes mellitus with diabetic polyneuropathy; E86.1 Hypovolemia; I12.9 Hypertensive chronic kidney disease with stage 1 through stage 4 chronic kidney disease, or unspecified chronic kidney disease; E87.5 Hyperkalemia; D63.1 Anemia in chronic kidney disease; I25.10 Atherosclerotic heart disease of native coronary artery without angina pectoris; E03.9 Hypothyroidism, unspecified; E78.00 Pure hypercholesterolemia, unspecified; K21.9 Gastro-esophageal reflux disease without esophagitis; F32.A Depression, unspecified; F12.90 Cannabis use, unspecified, uncomplicated; K44.9 Diaphragmatic hernia without obstruction or gangrene; R74.01 Elevation of levels of liver transaminase levels; M06.9 Rheumatoid arthritis, unspecified; Z79.899 Other long term (current) drug therapy; Z86.39 Personal history of other endocrine, nutritional and metabolic disease; Z87.891 Personal history of nicotine dependence
CPT/HCPCS: 76700; 80053; 80143; 80197; 82077; 82550; 83690; 84703; 85025; 85610; 85730; 86705; 86706; 86709; 86803; 87340; 96360; 99285